=== PATIENT | male | born 1970 | race Hispanic/Latino ===

== ENCOUNTER 2016-02-29 19:22 | Emergency (ER) | payer OTHER ==
[~2016-02-29] VITALS: Ht 172.7 cm; Wt 86.2 kg
--- NOTE | 2016-02-29 20:03 | ED ANKLE/FOOT INJURY COMPLAINT ---
History of Present Illness General Chief Complaint: Foot or Ankle Injury Stated Complaint: " TWISTED MY LT ANKLE" Source: patient Exam Limitations: no limitations Vital Signs & Intake/Output Vital Signs & Intake/Output Vital Signs Date Time Temp Pulse Resp B/P Pulse O2 O2 Flow FiO2 Ox Delivery Rate 02/28 1927 97.1 89 18 144/86 98 Room Air Allergies Coded Allergies: No Known Allergies (02/29/16) Reconcile Medications No Known Home Medications Triage Note: PRESENTS TO ED FOR EVALUATION OF TWISTED ANKLE. REPORTS TO HAVE BEEN LOADING THE TRUNK OF HIS CAR AND UPON TWISTING HIS BODY HE ROLLED HIS LEFT ANKLE. REPORTS + SWELLING, NO BRUSING. THIS EVENT OCCURRED YESTERDAY Triage Nurses Notes Reviewed? yes Occurred: just prior to arrival Duration: day(s): (1), constant Timing: recent history Severity: moderate, severe Pain/Injury Location: Left: Ankle. Method of Injury: twisted No Modifying Factors: none HPI: 45-year-old male comes into emergency room with complaints of left ankle pain since yesterday. Patient reports that he stepped on uneven ground and twisted it. Swelling. Sharp throbbing pain. Continuous. Nonradiating. Denies any injury trauma anywhere else. (FRANCISCO JAVIER PRESSLEY) Past History Travel History Traveled to [place] past 21 day No Medical History Any Pertinent Medical History? see below for history Surgical History Surgical History: non-contributory Psychosocial History What is your primary language Maltese Tobacco Use: Current Daily Use Daily Tobacco Use Amount/Type: => 5 Cigarettes daily Family History Hx Contributory? No (FRANCISCO JAVIER PRESSLEY) Review of Systems Review of Systems Constitutional: Reports: no symptoms. EENTM: Reports: no symptoms. Respiratory: Reports: no symptoms. Cardiovascular: Reports: no symptoms. GI: Reports: no symptoms. Genitourinary: Reports: no symptoms. Musculoskeletal: Reports: see HPI. Skin: Reports: no symptoms. Neurological/Psychological: Reports: no symptoms. Hematologic/Endocrine: Reports: no symptoms. Immunologic/Allergic: Reports: no symptoms. All Other Systems: Reviewed and Negative (FRANCISCO JAVIER PRESSLEY) Physical Exam Physical Exam General Appearance: well developed/nourished, mild distress Head: atraumatic Eyes: Bilateral: normal appearance. Ears, Nose, Throat: normal ENT inspection, hearing grossly normal Neck: normal inspection Cardiovascular/Respiratory: no respiratory distress Back: normal inspection Leg/Knee/Thigh Left: normal range of motion Ankle Left: soft tissue tenderness, swelling, limited range of motion Foot Left: normal inspection Neuro/Vascular: normal motor function Tendon: normal tendon function Psychiatric: awake, alert, oriented x 3 Skin: intact, normal color, warm/dry (FRANCISCO JAVIER PRESSLEY) Progress Differential Diagnosis: cellulitis, septic arthritis, fracture, dislocation, sprain, contusion Plan of Care: Orders Procedure Date/time Status Durable Medical Equipment 02/28 2002 Active Diagnostic Imaging: Viewed by Me: Radiology Read. Discussed w/RAD: Radiology Read. Radiology Impression: SERVICE DATE: 02/29/16 EXAM TYPE: RAD - XRY-ANKLE 3 OR MORE VIEWS L EXAMINATION: XR ANKLE, LEFT CLINICAL INFORMATION: Left ankle pain. COMPARISON: None TECHNIQUE: AP, lateral, and mortise views of the left ankle. FINDINGS: There is a small ovoid corticated osseous density inferior to the lateral malleolus chronic change. No fracture. No dislocation. Ankle mortise is congruent. Mild soft tissue swelling at lateral malleolus. IMPRESSION: No acute osseous abnormality. Soft tissue swelling at lateral malleolus. DICTATED BY: AGUILAR ORTIZ MD DATE/TIME DICTATED:02/29/162018 BIT GRINDER:JALEN DATE/TIME TRANSCRIBED:02/29/162018 CONFIDENTIAL, DO NOT COPY WITHOUT APPROPRIATE AUTHORIZATION. <Electronically signed in Other Vendor System> (FRANCISCO JAVIER PRESSLEY) Departure Departure Disposition: HOME OR SELF CARE Condition: Stable Clinical Impression Primary Impression: Left ankle sprain Referrals: PATIENT HAS NO PRIMARY CARE DR (PCP/Family) DENICE PAREDES,BROOK Hardy Additional Instructions: Ice. Rest. Motrin for pain. Elevation. Follow-up with orthopedic doctor provided if not better in 3-5 days. If symptoms do not improve you'll require further evaluation with possible repeat x-rays as well as evaluation by medical affairs specialist. Sprains can last anywhere from days to weeks. No high impact running or jumping if you have an ankle sprain or any type of lower extremity sprain. Return to normal activity only after symptoms have resolved. Departure Forms: Customer Survey General Discharge Information Prescriptions: Current Visit Scripts No Known Home Medications (FRANCISCO JAVIER PRESSLEY) PA/SLOT HOST Co-Sign Statement Statement: ED Attending supervision documentation- [] I saw and evaluated the patient. I have also reviewed all the pertinent lab results and diagnostic results. I agree with the findings and the plan of care as documented in the PA's/SLOT HOST's documentation. [X] I have reviewed the ED Record and agree with the PA's/SLOT HOST's documentation. [] Additions or exceptions (if any) to the PAs/SLOT HOST's note and plan are summarized below: [] (TOR PAREDES,STEPHANIA Hardy) Procedures Splinting Location: LEFT ANKLE Pre-Made Type: ANKLE STIRRUP Splint Applied By: splint applied by me Pre-Proc Neuro Vasc Exam: normal Post-Proc Neuro Vasc Exam: normal (FRANCISCO JAVIER PRESSLEY)
--- NOTE | 2016-02-29 20:24 | RADIOLOGY REPORT ---
EXAMINATION: XR ANKLE, LEFT CLINICAL INFORMATION: Left ankle pain. COMPARISON: None TECHNIQUE: AP, lateral, and mortise views of the left ankle. FINDINGS: There is a small ovoid corticated osseous density inferior to the lateral malleolus chronic change. No fracture. No dislocation. Ankle mortise is congruent. Mild soft tissue swelling at lateral malleolus. IMPRESSION: No acute osseous abnormality. Soft tissue swelling at lateral malleolus.
== END 2016-02-29 20:34 ==
LOC: ERH 19:22
DX: S93.402A Sprain of unspecified ligament of left ankle, initial encounter (principal); X50.9XXA Other and unspecified overexertion or strenuous movements or postures, initial encounter; Y93.01 Activity, walking, marching and hiking
CPT/HCPCS: 73610-LT